=== PATIENT | male | born 1995 | race Caucasian/White ===

== ENCOUNTER 2023-11-01 15:29 | Emergency (ER) | payer MEDICAID ==
[~2023-11-01] VITALS: Ht 182.9 cm; Wt 124.0 kg
[2023-11-01 15:33] VITALS: TEMP 98.8; O2SAT 97
[2023-11-01] MEDS ORDERED: LIDOCAINE HCL/PF 1% 10 MG/ML 5ML VIAL INFIL ONE (18:15)
[2023-11-01] MEDS ORDERED: BACITRACIN ZINC OINT UDPKT TOP ONE (18:15)
[2023-11-01] MEDS ORDERED: IBUPROFEN 600MG TABLET PO ONE (18:15)
[2023-11-01 18:50] VITALS: BP 138/95; PULSE 104; RESP 20
[2023-11-01] MEDS ORDERED: NEOM28.37 TP (20:49)
[2023-11-01] MEDS ORDERED: IBUP-2029 MT (20:49)
== END 2023-11-01 21:45 | disposition home or self-care (01) ==
LOC: ER 15:29
DX: S01.81XA Laceration without foreign body of other part of head, initial encounter (principal); S50.02XA Contusion of left elbow, initial encounter; E11.9 Type 2 diabetes mellitus without complications; E78.00 Pure hypercholesterolemia, unspecified; V19.49XA Pedal cycle driver injured in collision with other motor vehicles in traffic accident, initial encounter; Y93.89 Activity, other specified; Y92.89 Other specified places as the place of occurrence of the external cause; Y99.8 Other external cause status
CPT/HCPCS: 99284; 70450; 71045; 73070; 73130; 73560; 70486; 12011; J3490

== ENCOUNTER 2024-09-05 14:33 | Emergency (ER) | payer MEDICAID ==
[~2024-09-05] VITALS: Ht 185.4 cm; Wt 113.4 kg
[~2024-09-05 14:33] MED LIST: IBUP-2029 MT; NEOM28.37 TP
[2024-09-05 14:38] VITALS: TEMP 98.8; O2SAT 97
[2024-09-05] MEDS: SODIUM CHLORIDE 0.9% 1,000 ML IV ONE (15:28)
[2024-09-05] MEDS: LACTATED RINGERS IV NR (15:29)
[2024-09-05 15:37] VITALS: BP 122/66; PULSE 76; RESP 18; O2SAT 98
[2024-09-05 15:42] LABS: BASOPHILS % 0.2 % (0.0-2.0); EOSINOPHILS % 0.7 % (0.0-5.0); HEMATOCRIT. 43.8 % (42.0-52.0); HEMOGLOBIN. 14.2 g/dL (14.0-18.0); LYMPHOCYTES % 11.7 % (20.0-50.0); MEAN CORPUSCULAR HEMOGLOBIN 29.6 pg (28.0-32.0); MEAN CORPUSCULAR HGB CONC 32.4 g/dL (31.0-37.0); MEAN CORPUSCULAR VOLUME 91.3 fL (80.0-94.0); MEAN PLATELET VOLUME 9.3 fl (7.4-10.4); MONOCYTES % 6.1 % (2.0-8.0); NEUTROPHILS % 81.3 % (40.0-76.0); PLATELET 104 x1000/uL (130-400); RED BLOOD CELL COUNT 4.79 mill/uL (4.7-6.1); RED CELL DISTRIBUTION WIDTH 12.1 % (11.6-14.6); WHITE BLOOD COUNT 5.1 x1000/uL (4.5-11.0)
[2024-09-05 15:48] LABS: CHLORIDE 99 mEq/L (98-107); POTASSIUM 4.2 mEq/L (3.5-5.1); SODIUM 133 mEq/L (136-145)
[2024-09-05 15:49] LABS: CARBON DIOXIDE 24 mEq/L (21-32)
[2024-09-05 15:50] LABS: CALCIUM 8.9 mg/dL (8.7-10.4)
[2024-09-05 15:54] LABS: GLUCOSE 381 mg/dL (70-105)
[2024-09-05 15:55] LABS: UREA NITROGEN BLOOD 12 mg/dL (9-23)
[2024-09-05 15:56] LABS: ALANINE AMINOTRANSFERASE 21 IU/L (10-49); ALBUMIN 4.5 g/dL (3.2-4.8); ASPARTATE AMINOTRANSFERASE 26 IU/L (<34); BILIRUBIN DIRECT 0.3 mg/dL (<=3.0); BILIRUBIN TOTAL 1.2 mg/dL (0.1-1.0); PROTEIN TOTAL 7.8 g/dL (6.0-8.3)
[2024-09-05 15:57] LABS: TROPONIN I HIGH SENSITIVITY < 4 ng/L (3.0-53)
[2024-09-05 17:03] LABS: CLARITY URINE CLEAR (CLEAR); COLOR URINE YELLOW (YELLOW); GLUCOSE URINE 3+ (NEGATIVE); KETONES URINE 3+ (NEGATIVE); LEUKOCYTE ESTERASE URINE NEGATIVE (NEGATIVE); NITRITE URINE NEGATIVE (NEGATIVE); OCCULT BLOOD URINE NEGATIVE (NEGATIVE); PH URINE 5.5 (4.5-8.0); PROTEIN URINE NEGATIVE (NEGATIVE); SPECIFIC GRAVITY URINE 1.026 (1.005-1.030); UROBILINOGEN URINE 0.2 E.U./dL (0.2-1.0)
[2024-09-05 17:31] LABS: BACTERIA URINE NONE SEEN; RBC URINE NONE SEEN /hpf (0-2); SQUAMOUS EPITHELIAL CELL URINE RARE /lpf (RARE/1+); WBC URINE 0-2 /hpf (0-2)
[2024-09-05] MEDS ORDERED: INSULIN GLARGINE 100 UNITS/ML SUBCUT ONE (18:00)
== END 2024-09-05 18:00 | disposition left against medical advice (07) ==
LOC: ER 14:33
DX: R11.2 Nausea with vomiting, unspecified (principal); E11.9 Type 2 diabetes mellitus without complications; E78.00 Pure hypercholesterolemia, unspecified; Z88.0 Allergy status to penicillin; Z91.148 Patient's other noncompliance with medication regimen for other reason
CPT/HCPCS: 80076; 80048; 81003; 82010; 82962; 83690; 85025; 86850; 86900; 86901; 84484; 36415; 71045; 96360; 99291; J1815; Z7610 ×3